=== PATIENT | male | born 1955 | race African-American/Black ===

== ENCOUNTER 2024-11-11 07:36 | Outpatient (CLI) | payer MEDICARE, MEDICAID ==
[2024-11-11 07:45] LABS: Hematocrit 39.5 % (42.0-52.0); Hemoglobin 12.4 g/dL (14.0-18.0); Mean Corpuscular Hemoglobin 28.1 pg (27.0-31.0); Mean Corpuscular Volume 89.4 fl (78.0-98.0); Platelet Count 282 10x3/uL (130-400); Red Blood Cell (RBC) Count 4.42 mill/uL (4.70-6.10); White Blood Cell (WBC) Count 5.3 10x3/uL (4.8-10.8)
[2024-11-11 07:48] LABS: Manual Diff?? YES
[2024-11-11 07:49] LABS: MDiff Complete? YES; Platelet Adequacy Comment Appears Adequate
[2024-11-11 09:25] LABS: Anion Gap 16 mmol/L (10-20); BUN (Urea Nitrogen) 13 mg/dL (8.4-25.7); Calc. Creatinine Clearance 0 mL/min (70-130); Calcium 8.5 mg/dL (7.8-10.44); Carbon Dioxide 21 mmol/L (23-31); Chloride 109 mmol/L (98-107); Glucose 77 mg/dL (80-115); Potassium 4.1 mmol/L (3.5-5.1); Sodium 142 mmol/L (136-145)
== END 2024-11-11 07:37 | disposition home or self-care (01) ==
LOC: MADLAB 07:36
PROVIDERS: ATTEND Nurse Practitioner Primary Care
DX: E87.1 Hypo-osmolality and hyponatremia (principal)
CPT/HCPCS: 80048; 80177; 85025

== ENCOUNTER 2025-01-21 18:39 | Outpatient (CLI) | payer MEDICARE, MEDICAID ==
[2025-01-21 18:46] LABS: #Basophils 0.1 thou/uL (0.0-0.2); #Eosinophils 0.1 thou/uL (0.0-0.7); #Lymphocytes 2.3 thou/uL (1.20-3.40); #Monocytes 0.5 thou/uL (0.11-0.59); #Neutrophils 3.9 thou/uL (1.40-6.50); %Basophils 1.6 % (0.0-1.0); %Eosinophils 1.1 % (0.0-10.0); %Lymphocytes 34.0 % (21.0-51.0); %Monocytes 6.7 % (0.0-10.0); %Neutrophils 56.6 % (42.0-75.0); ALT (SGPT) 18 U/L (Less than 45); AST (SGOT) 26 U/L (11-34); Albumin 4.4 g/dL (3.1-4.5); Alkaline Phosphatase 127 U/L (40-110); Anion Gap 18 mmol/L (10-20); BUN (Urea Nitrogen) 14 mg/dL (8.4-25.7); Bilirubin, Total 0.3 mg/dL (0.3-1.2); Calc. Creatinine Clearance 0 mL/min (70-130); Calcium 9.7 mg/dL (7.8-10.44); Carbon Dioxide 22 mmol/L (23-31); Chloride 104 mmol/L (98-107); Globulin 4.1 g/dL (2.4-3.5); Glucose 96 mg/dL (80-115); Hematocrit 45.8 % (42.0-52.0); Hemoglobin 14.4 g/dL (14.0-18.0); Mean Corpuscular Hemoglobin 28.5 pg (27.0-31.0); Mean Corpuscular Volume 91.0 fl (78.0-98.0); Platelet Count 306 10x3/uL (130-400); Potassium 4.3 mmol/L (3.5-5.1); Red Blood Cell (RBC) Count 5.03 mill/uL (4.70-6.10); Sodium 140 mmol/L (136-145); White Blood Cell (WBC) Count 6.8 10x3/uL (4.8-10.8)
== END 2025-01-21 18:40 | disposition home or self-care (01) ==
LOC: MADLAB 18:39
PROVIDERS: ATTEND Nurse Practitioner Primary Care
DX: G93.40 Encephalopathy, unspecified (principal); E46 Unspecified protein-calorie malnutrition; E87.1 Hypo-osmolality and hyponatremia
CPT/HCPCS: 80053; 85025